=== PATIENT | female | born 1995 | race Two or more races ===

== ENCOUNTER → 2025-08-20 | Outpatient (CLI) | payer MEDICAID, SELFPAY ==
--- NOTE | 2025-08-20 09:30 | XR_ITS ---
EXAMINATION: XR esophogram standard HISTORY: R05.9 - Cough, unspecified COMPARISON: 11/21/2018, chest radiographs. TECHNIQUE: Frontal taproom attendant radiograph of the chest and lateral taproom attendant radiograph of the neck were followed by multiple fluoroscopic images obtained during and after the uneventful administration of thin oral barium FLUOROSCOPY TIME: 1.3 min RADIATION: 183.06 mGy FINDINGS: Cardiac silhouette normal in size. No pneumothorax, pleural effusion, consolidation. Very mild dextroconvex curvature of the mid to lower thoracic spine. Bilateral nipple studs. Lateral taproom attendant radiograph of the neck demonstrates mild reversal of the normal cervical lordotic curvature which may be positional or on the basis of muscle spasm. Probable earrings. No prevertebral soft tissue swelling. Esophagus: Normal. No obstruction or abnormal extrinsic compression. Gastroesophageal junction: Normal. Other: Minimal gastroesophageal reflux limited to the distal esophagus. IMPRESSION: Minimal gastroesophageal reflux.
== END | disposition home or self-care (01) ==
DX: K21.9 Gastro-esophageal reflux disease without esophagitis (principal)
CPT/HCPCS: 74220; A4649